=== PATIENT | male | born 1990 | race Caucasian/White ===

== ENCOUNTER 2020-04-04 10:41 | Outpatient (NON) | payer BC, SELFPAY ==
[2020-04-05 01:06] LABS: SARS-CoV-2 RNA PCR Negative
== END 2020-04-04 10:42 ==
LOC: ANHCOVIDDT 10:42
PROVIDERS: PCP Family Medicine; Visit Provider Family Medicine
DX: Z20.828 Contact with and (suspected) exposure to other viral communicable diseases (principal)
CPT/HCPCS: 87635; C9803; U0003

== ENCOUNTER 2020-11-11 11:25 | Emergency (ER) | payer BC, SELFPAY ==
[2020-11-11 11:55] VITALS: BP 127/75; PULSE 74; RESP 16; TEMP 36.5; O2SAT 94
[2020-11-11 12:19] LABS: Basophils Absolute Auto 0.1 K/mm3 (0.0-0.1); Basophils Percent Auto 0.6 % (0.2-1.2); Eosinophils Absolute Auto 0.1 K/mm3 (0-0.3); Eosinophils Percent Auto 1.4 % (0-4.4); Hematocrit 49.1 % (42.0-52.0); Hemoglobin 16.6 g/dL (14.0-18.0); Immature Granulocyte Absolute 0.04 K/mm3 (0.00-0.031); Immature Granulocyte Percent A 0.5 % (0-0.5); Lymphocytes Absolute Auto 2.56 K/mm3 (0.9-3.2); Lymphocytes Percent Auto 29.6 % (18.3-44.2); Mean Corpuscular HGB Conc 33.8 g/dl (32-36); Mean Corpuscular Hemoglobin 30.2 pg (26-34); Mean Corpuscular Volume 89.4 fl (80-100); Mean Platelet Volume 9.8 fl (7.4-10.4); Monocytes Absolute Auto 0.7 K/mm3 (0.1-0.6); Monocytes Percent Auto 7.5 % (2.6-8.5); Neutrophils Absolute Auto 5.2 K/mm3 (1.3-6.7); Neutrophils Percent Auto 60.4 % (45.5-73.1); Platelet Count Result 228 k/mm3 (150-375); Red Blood Count 5.49 M/mm3 (4.6-6.20); Red Cell Distribution Width 11.7 % (11.5-14.5); White Blood Count 8.7 K/mm3 (4.5-10.0)
[2020-11-11 12:30] LABS: Alanine Aminotransferase 65 U/L (4-50); Albumin Level 4.8 g/dL (3.5-5.1); Alkaline Phosphatase 69 U/L (38-126); Anion Gap 11 mmol/L (8-16); Aspartate Amino Transferase 43 U/L (17-59); Bilirubin,Total 0.6 mg/dL (0.2-1.3); Blood Urea Nitrogen 13 mg/dL (9-20); Calcium 9.7 mg/dL (8.4-10.2); Carbon Dioxide 25 mmol/L (22-30); Chloride 104 mmol/L (98-107); Estimated CRCL calculation 131 ml/min; Estimated Glomerular Filt Rate > 60; Glucose 88 mg/dL (75-110); Lipase 279 U/L (23-300); Potassium 4.1 mmol/L (3.4-5.0); Sodium 140 mmol/L (137-145)
[2020-11-11 15:46] VITALS: BP 129/85; PULSE 79; RESP 16; O2SAT 97
--- NOTE | 2020-11-11 15:54 | ED.ABDPAIN ---
HPI - Abdominal Pain General Chief Complaint: Abdominal Pain Stated Complaint: abd pain, nausea Time Seen by Provider: 11/11/20 15:47 History of Present Illness HPI narrative: LUQ pain started suddenly while at work earlier. Sharp in quality. No radiation. Worse with walking. Associated with nausea. No vomiting, fever, diarrhea, hematuria, dysuria. Related Data Home Medications Medication Instructions Recorded Confirmed omeprazole 20 mg tablet,delayed 20 mg PO DAILY 01/18/20 04/26/20 release amitriptyline 10 mg tablet 10 mg PO . q.h.s. tablet 04/04/20 04/26/20 meloxicam 15 mg tablet 15 mg PO DAILY PRN 04/04/20 04/26/20 Allergies Allergy/AdvReac Type Severity Reaction Status Date / Time No Known Allergies Allergy Verified 08/13/19 15:00 Review of Systems Review of Systems: All systems reviewed & are unremarkable except as noted in HPI and below Constitutional: Constitutional: Denies chills and Denies fever(s) Cardiovascular: Cardiovascular: Denies chest pain Respiratory: Respiratory: Denies dyspnea Gastrointestinal: Gastrointestinal: Reports abdominal pain, Denies constipation, Denies diarrhea, Reports nausea and Denies vomiting Genitourinary: Genitourinary: Denies hematuria and Denies dysuria Musculoskeletal: Musculoskeletal: Denies back pain Neurologic: Reports system reviewed and no additional complaints, except as documented PMF Past Medical History Medical History Ankylosing spondylitis Bipolar mood disorder BMI 32.0-32.9,adult Chronic anxiety Chronic depression COVID-19 (06/27/20) Diarrhea Elevated liver enzymes Exposure to COVID-19 virus GERD (gastroesophageal reflux disease) Pharyngitis Family History Family History Grandparent Cerebrovascular accident Social History Social History Smoking status: Never smoker Alcohol intake: never Substance use: current Substance use type: marijuana Other substance usage details: uses CBD oil in a pen form and uses for hip pain. Also uses in edible form. Last use: 4 weeks ago Gender identity (if verbalized by the patient): Male Exam Const: General: no acute distress and alert Orientation/consciousness: patient oriented x3 HENMT: Head: normal to inspection Neck: Neck: normal visual inspection and no lymphadenopathy Chest: Chest palpation & inspection: no tenderness Resp: Effort & Inspection: normal respiratory effort Auscultation: clear to auscultation bilaterally, no rales, no rhonchi and no wheezes Cardio: Jugular venous distension: no JVD Rate: regular rate Rhythm: regular rhythm Heart sounds: no murmurs GI: Inspection: non-distended GI Palp: Yes Soft to palpation and No Tenderness to palpation present (GI) Skin: General skin exam: normal color Neuro: General: patient oriented x3 and moves all extremities Speech: normal speech Extrem: General: no edema Psych: Appearance: well kempt Affect: normal affect Course Vital Signs Vital signs: Vital Signs Temperature 36.5 C 11/11/20 11:55 Pulse Rate 74 11/11/20 11:55 Respiratory Rate 16 11/11/20 11:55 Blood Pressure 127/75 11/11/20 11:55 Pulse Oximetry 94 11/11/20 11:55 Temperature 36.5 C 11/11/20 11:55 Pulse Rate 74 11/11/20 16:40 Respiratory Rate 16 11/11/20 16:40 Blood Pressure 113/65 11/11/20 16:40 Pulse Oximetry 96 11/11/20 16:40 MDM - Abdominal Pain MDM Narrative Medical decision making narrative: Benign exam. Story is nonspecific. Differential Diagnosis Differential diagnosis: Likely abdominal pain and calculus of kidney Medical Records Attestation: I reviewed the patient's medical records. Lab Data Attestation: I reviewed the patient's lab results. Result diagrams: 11/11/20 12:03 11/11/20 12:03 Lab
[2020-11-11 16:15] LABS: Add Urine Microscopic? NO; Appearance Urine Clear (Clear); Bilirubin Urine Negative (Negative); Blood Urine Negative (Negative); Color Urine Yellow (Yellow); Glucose Urine UA Negative (Negative); Ketones Urine Negative (Negative); Leukocyte Esterase Ur Negative LEU/UL (Negative); Nitrate Urine Negative (Negative); Protein Urine Negative (Negative); Specific Grav Ur 1.024 (1.001-1.035); Urobilinogen Urine Negative mg/dL (<2.0)
[2020-11-11 16:40] VITALS: BP 113/65; PULSE 74; RESP 16; O2SAT 96
== END 2020-11-11 16:41 | disposition home or self-care (01) ==
PROVIDERS: Family Medicine; Emergency Provider Emergency Medicine; PCP Family Medicine
DX: R10.12 Left upper quadrant pain (principal); F31.9 Bipolar disorder, unspecified; F41.9 Anxiety disorder, unspecified; Z86.16 Personal history of COVID-19; K21.9 Gastro-esophageal reflux disease without esophagitis
CPT/HCPCS: 36415; 80053; 81003; 83690; 85025; 99283

== ENCOUNTER 2020-11-18 13:12 | Outpatient (CLI) | payer BC, SELFPAY ==
--- NOTE | ~2020-11-18 | CT_ITS ---
EXAMINATION: CT abdomen pelvis wo con DATE: 11/18/2020 13:58 INDICATION: Left upper quadrant pain TECHNIQUE: Computed tomography (CT) of the abdomen and pelvis was performed without intravenous contr ast. The dose-length product (DLP) was 989.14 mGy-cm. Automated exposure control and iterative recons truction technique were employed. COMPARISON: None FINDINGS: The lung bases are clear. The heart size is normal. Mild bilateral gynecomastia is noted. T he liver, spleen, pancreas, gallbladder, and adrenal glands are normal. The kidneys are unremarkable. No pathologically enlarged abdominal or pelvic lymph nodes are identified. The appendix is normal. T here is no free intraperitoneal gas or evidence of bowel obstruction. There is a tiny fat-containing umbilical hernia. IMPRESSION: 1. No CT correlate for the patient's symptoms. Reviewed, dictated and finalized at location A.
== END 2020-11-18 13:13 | disposition home or self-care (01) ==
LOC: ANHIMG 13:12
PROVIDERS: PCP Family Medicine; Visit Provider Family Medicine
DX: R10.32 Left lower quadrant pain (principal)
CPT/HCPCS: 74176

== ENCOUNTER → 2020-12-30 01:36 | Outpatient (CLI) | payer BC, SELFPAY ==
[2020-12-31 21:35] LABS: SARS-CoV-2 RNA PCR Negative
== END ==
PROVIDERS: PCP Family Medicine; Visit Provider Family Medicine
DX: Z20.822 Contact with and (suspected) exposure to COVID-19 (principal)
CPT/HCPCS: C9803; U0003; U0005

== ENCOUNTER → 2021-12-19 10:06 | Outpatient (CLI) | payer BC, SELFPAY ==
--- NOTE | ~2021-12-19 | XR_ITS ---
EXAMINATION: XR hand LT min 3V INDICATION: Left hand pain TECHNIQUE: Three views of the left hand are obtained. COMPARISON: None available FINDINGS: Bone alignment is normal. There is no fracture. No erosions are identified. The joint space s are unremarkable. The soft tissues are normal. IMPRESSION: 1. Unremarkable and radiographs. Reviewed, dictated and finalized at location B.
--- NOTE | ~2021-12-19 | XR_ITS ---
XR hip LT 2V w AP pelvis 12/19/2021 10:32 Indication: Pelvic pain. Left hip pain. Procedure: AP pelvis and 3 views left hip Comparison: No prior studies for comparison. Findings: Pelvic rings are intact. Sacral foramen are symmetric. Mild osteoarthritis of the hips. Sac ral foramen are symmetric. No significant soft tissue abnormality is identified. Impression: 1: Mild osteoarthritis of the hips. Reviewed, dictated and finalized at location A. Impression: 1: Mild osteoarthritis of the hips.
--- NOTE | ~2021-12-19 | XR_ITS ---
EXAMINATION: XR hand RT min 3V INDICATION: Right hand pain TECHNIQUE: Three views of the right hand are obtained. COMPARISON: 01/27/2007 FINDINGS: Bone alignment is normal. There is no fracture. No erosions are identified. The joint space s are normal. The soft tissues are unremarkable. IMPRESSION: 1. Unremarkable hand radiographs. Reviewed, dictated and finalized at location B.
== END ==
PROVIDERS: PCP Family Medicine; Visit Provider Family Medicine
DX: M25.552 Pain in left hip (principal); M79.641 Pain in right hand; G89.29 Other chronic pain; M79.642 Pain in left hand; M16.0 Bilateral primary osteoarthritis of hip
CPT/HCPCS: 73130; 73502

== ENCOUNTER 2023-06-24 08:05 | Emergency (ER) | payer BC, SELFPAY ==
[2023-06-24 08:09] VITALS: BP 124/88; PULSE 72; RESP 16; TEMP 36.6; O2SAT 100
--- NOTE | 2023-06-24 08:13 | ED.GENADULT ---
HPI - General Adult General Chief complaint: Extremity Injury, Lower Stated complaint: Swollen knee Source: patient, RN notes reviewed and old records reviewed Mode of arrival: ambulatory Limitations: no limitations History of Present Illness HPI narrative: 33-year-old male patient presents to [facility] with complaint of red, warm bump on her right knee the patient noted Saturday. Patient states that was ingrown hair pulled the hair out the redness is getting worse. Patient has tried warm compresses with no relief. Related Data Home Medications Medication Instructions Recorded Confirmed cannabis 1 puff BYMOUTH DAILY 12/19/21 06/24/23 Allergies Allergy/AdvReac Type Severity Reaction Status Date / Time No Known Allergies Allergy Verified 06/24/23 08:14 Review of Systems Constitutional: Constitutional: Reports no additional constitutional complaints, Denies body ache(s), Denies chills, Denies fatigue, Denies fever(s) and Denies headache(s) Eyes: Eyes: Reports no additional eye complaints and Denies blurry vision ENT: Reports system reviewed and no additional complaints, except as documented, Denies vertigo, Denies dizziness, Denies ear discharge, Denies otalgia, Denies facial pain, Denies headache(s), Denies nasal congestion, Denies nasal discharge, Denies sinus pain, Denies sinus pressure and Denies sore throat Cardiovascular: Cardiovascular: Reports no additional cardiovascular complaints, Denies chest pain, Denies chest pain at rest, Denies rapid heart rate and Denies dyspnea Respiratory: Respiratory: Reports no additional respiratory complaints, Denies chest congestion, Denies cough, Denies pain on inspiration, Denies pain with cough and Denies dyspnea Gastrointestinal: Gastrointestinal: Denies abdominal pain, Denies diarrhea, Denies nausea and Denies vomiting Integumentary/Breasts: Skin/Breast: Reports furuncle and Denies rash Neurologic: Reports system reviewed and no additional complaints, except as documented, Denies vertigo, Denies dizziness and Denies headache(s) Endocrine: Endocrine: Denies fatigue PMFSH Past Medical History Medical History ADHD (attention deficit hyperactivity disorder), inattentive type Ankylosing spondylitis Bipolar mood disorder BMI 26.0-26.9,adult BMI 27.0-27.9,adult BMI 28.0-28.9,adult BMI 31.0-31.9,adult BMI 32.0-32.9,adult Cellulitis and abscess of buttock Chronic anxiety Chronic depression Chronic left hip pain Chronic pain thoracic pain, hand pain, hip pain Chronic pain of left hand Chronic pain of right hand Chronic thoracic back pain COVID-19 (06/27/20) 07/23/22 Diarrhea Elevated high sensitivity C-reactive protein (12/19/21) CRP elevated at greater than 10 on 12/19/2021 with sed rate 9, rheumatoid factor less than 14, CCP less than 16, MEHDI negative, uric acid 5.4. WBC 10.0. HS CRP 0.7 on 03/12/2022. Elevated liver enzymes (01/13/21) AST 33 with ALT elevated at 65 on 01/13/2021. AST 20, ALT 22, GGT 18 on 12/19/2021. Erectile dysfunction Exposure to COVID-19 virus GERD (gastroesophageal reflux disease) Left lower quadrant abdominal pain Mixed hyperlipidemia (01/13/21) total cholesterol 241, triglycerides 97, HDL 51 and LDL 168 on 01/13/2021. Total cholesterol 161, triglycerides 103, HDL 44 and LDL 97 on 12/19/2021. Nail fungal infection (~2021) right foot 3rd and 4th digit, left 5th digit on the feet Nausea and vomiting Overweight (BMI 25.0-29.9) Pharyngitis Sebaceous cyst chronic Sebaceous cyst left occipital scalp 1 cm in diameter asymptomatic. Family History Family History Grandparent Cerebrovascular accident Social History Social History Smoking status: Never smoker Alcohol intake: current Alcohol use details: Socially Substance use: current Substance use type:
== END 2023-06-24 08:35 | disposition home or self-care (01) ==
PROVIDERS: Emergency Provider Registered Nurse; PCP Family Medicine
DX: L02.415 Cutaneous abscess of right lower limb (principal); F12.90 Cannabis use, unspecified, uncomplicated; F90.9 Attention-deficit hyperactivity disorder, unspecified type; K21.9 Gastro-esophageal reflux disease without esophagitis; E78.2 Mixed hyperlipidemia; Z86.16 Personal history of COVID-19
CPT/HCPCS: 99213; G0463

== ENCOUNTER 2024-04-19 13:01 | Emergency (ER) | payer BC, SELFPAY ==
[2024-04-19 13:24] VITALS: BP 130/84; PULSE 98; RESP 16; TEMP 36.6; O2SAT 99
--- NOTE | 2024-04-19 13:58 | ED.BACK ---
HPI - Back Pain/Injury General Chief Complaint: Back Pain/Injury Stated Complaint: Back/Rib Pain Source: patient Mode of arrival: ambulatory Limitations: no limitations History of Present Illness HPI Narrative: 34-year-old male presented for complaint of right lower back pain and right lower rib pain, after injury last night. He states while walking up the stairs he fell and struck the left knee on the step but states he twisted his back. Took ibuprofen this morning. Denies pain radiating into the hips or legs, numbness, tingling, weakness of the lower extremities, or change in gait, saddle paresthesia or loss of bowel or bladder. Related Data Home Medications Medication Instructions Recorded Confirmed cannabis 1 puff BYMOUTH DAILY 12/19/21 04/19/24 Allergies Allergy/AdvReac Type Severity Reaction Status Date / Time No Known Allergies Allergy Verified 04/19/24 13:36 Review of Systems Review of Systems: CONSTITUTIONAL: Denies body aches, fever, chills EYES: Denies visual changes CARDIOVASCULAR: Denies chest pain, palpitations, or edema. RESPIRATORY: Denies cough or dyspnea. GASTROINTESTINAL: Denies abdominal pain, nausea, vomiting, or diarrhea. SKIN: Denies rash, itching, or wounds. MUSCULOSKELETAL: reports back pain NEUROLOGIC: Denies numbness, tingling, or weakness. All systems reviewed & are unremarkable except as noted in HPI and below PMFSH Past Medical History Medical History ADHD (attention deficit hyperactivity disorder), inattentive type Ankylosing spondylitis Bipolar mood disorder BMI 26.0-26.9,adult BMI 27.0-27.9,adult BMI 28.0-28.9,adult BMI 29.0-29.9,adult BMI 31.0-31.9,adult BMI 32.0-32.9,adult Cellulitis and abscess of buttock Chronic anxiety Chronic depression Chronic left hip pain Chronic pain thoracic pain, hand pain, hip pain Chronic pain of left hand Chronic pain of right hand Chronic thoracic back pain COVID-19 (06/27/20) 07/23/22 Diarrhea Elevated high sensitivity C-reactive protein (12/19/21) CRP elevated at greater than 10 on 12/19/2021 with sed rate 9, rheumatoid factor less than 14, CCP less than 16, MEHDI negative, uric acid 5.4. WBC 10.0. HS CRP 0.7 on 03/12/2022. Elevated liver enzymes (01/13/21) AST 33 with ALT elevated at 65 on 01/13/2021. AST 20, ALT 22, GGT 18 on 12/19/2021. Encounter for wellness examination in adult Erectile dysfunction Exposure to COVID-19 virus GERD (gastroesophageal reflux disease) Left lower quadrant abdominal pain Mixed hyperlipidemia (01/13/21) total cholesterol 241, triglycerides 97, HDL 51 and LDL 168 on 01/13/2021. Total cholesterol 161, triglycerides 103, HDL 44 and LDL 97 on 12/19/2021. Nail fungal infection (~2021) right foot 3rd and 4th digit, left 5th digit on the feet Nausea and vomiting Overweight (BMI 25.0-29.9) Pharyngitis Sebaceous cyst chronic Sebaceous cyst left occipital scalp 1 cm in diameter asymptomatic. Family History Family History Grandparent Cerebrovascular accident Social History Social History Smoking status: Never smoker Alcohol intake: current Alcohol use details: Socially Substance use: current Substance use type: marijuana Other substance usage details: Uses marijuana for chronic pain Lack of Transportation: No Lack of Food: Sometimes True Current Housing: I Have Housing Concerned About Future Housing: No Difficulty Paying Gas/Electric Bills: No Difficulty Paying for Meds: No Currently Unemployed: No Education: High School Diploma/GED Difficulty w/ Childcare or Family Care: No Living arrangements: with family Occupation/Education: occupation Gender identity (if verbalized by the patient): Male Comments At time of signature, I have reviewed and agree with nursing past medical, surgical, social and family history unless otherwise noted. Please see nursing chart for further information. There is no relevant family history pertinent to the presenting complaint Exam Narrative: GENERAL: Well-appearing CHEST: Speaks in full sentences. No respiratory distress. HEART: Regular rate and rhythm. Normal and equal peripheral pulses. MUSC: No Vertebral point tenderness. BLEs with normal strength and sensation, normal range of motion; endorses right lower back pain with movement. No ecchymosis, No open wounds, alignment normal, pulse palpable and equal bilaterally, skin warm, dry, pink. Capillary refill less than 3 seconds. Gait steady. SKIN: Warm, dry, no rash. NEURO: Alert and oriented x3. Back/Spine/Pelvis: Back/spine/pelvis image: 1. Location of back pain Course Course Emergency Course: Patient is aware of diagnosis, understands and agrees to treatment plan. Anticipatory guidance given. Patient agrees to follow-up as directed and is aware of reasons to seek care at the emergency department. Portions of this record may have been created with voice recognition software Level of Care: Express Care Visit Vital Signs Vital signs: Vital Signs Temperature 97.9 F 04/19/24 13:24 Pulse Rate 98 04/19/24 13:24 Respiratory Rate 16 04/19/24 13:24 Blood Pressure 130/84 04/19/24 13:24 Pulse Oximetry 99 04/19/24 13:24 Temperature 97.9 F 04/19/24 13:24 Pulse Rate 98 04/19/24 13:24 Respiratory Rate 16 04/19/24 13:24 Blood Pressure 130/84 04/19/24 13:24 Pulse Oximetry 99 04/19/24 13:24 Reviewed MDM - Back Pain/Injury MDM Narrative Medical decision making narrative: Discussed physical exam findings, patient states he does not like to take very many medications. Deferred muscle relaxer at this time. Advised supportive measures and s/s to go to the ER. Pt is stable and appropriate for outpt treatment and follow up with pcp. Differential Diagnosis Differential diagnosis: Likely lumbar radiculopathy, sciatica, strain of lumbar region, renal colic, pyelonephritis and discitis Discharge Plan Discharge Clinical Impression: Low back strain Patient Disposition: Home, Self-Care Condition: Stable Instructions: Antibiotic Form, Low Back Strain (ED) Additional Instructions: Avoid lifting. pushing. pulling, or anything that worsens the pain. Walking and other gentle exercising several times a week has been shown to improve back pain; bed rest is not recommended. Take Motrin 800mg every 6-8 hours with food for the next 2-3 days, along with Tylenol 1000mg every 8 hours Over the counter pain cream like icy/hot or biofreeze, or Salon pas/lidocaine 4% patch. You may apply heat or cold to the area as needed. If you experience any worsening pain, swelling, numbness, weakness, problems with bladder or bowel function, weakness or loss of feeling in one or both of your legs, or any other serious concerns. Please follow up with your Primary Care Doctor within 48-72 hours - call for an appointment. Prescriptions: New ibuprofen 800 mg tablet 800 mg PO TID PRN (Reason: pain) Qty: 15 0RF No Action cannabis 1 puff BYMOUTH DAILY dextroamphetamine-amphetamine [Adderall] 10 mg tablet 10 mg PO BID Qty: 60 0RF Rx Instructions: administer doses at least 4-6 hours apart Follow-up/Referrals: Ivan Yang MD [Primary Care Provider] - Stand Alone Forms: Work/School Release IP Time of Disposition: 14:07
== END 2024-04-19 14:08 | disposition home or self-care (01) ==
PROVIDERS: Emergency Provider Nurse Practitioner Family; PCP Family Medicine
DX: S39.012A Strain of muscle, fascia and tendon of lower back, initial encounter (principal); W10.9XXA Fall (on) (from) unspecified stairs and steps, initial encounter; K21.9 Gastro-esophageal reflux disease without esophagitis; E78.2 Mixed hyperlipidemia; F12.90 Cannabis use, unspecified, uncomplicated
CPT/HCPCS: 99213; G0463

== ENCOUNTER → 2024-04-27 09:18 | Outpatient (CLI) | payer BC, SELFPAY ==
--- NOTE | ~2024-04-27 | XR_ITS ---
EXAMINATION: XR lumbar spine min 4V DATE: 04/27/2024 09:40 INDICATION: Thoracic and lumbar spine pain with left-sided sciatica TECHNIQUE: 1. One AP and lateral views of the thoracic spine were obtained. 2. AP, lateral, left and right oblique and coned-down lateral lumbosacral views of the lumbar spine w ere obtained. COMPARISON: 02/17/2019 FINDINGS: Thoracic spine: Slight S-shaped curvature of the thoracic spine with 5 degree upper thoracic dextrocurvature and 5 de grees lower thoracic levocurvature. Unchanged minimal to mild anterior wedging at a few levels in the midthoracic spine, likely T5-T8. There is mild to moderate thoracic disc height loss most prominent in the midthoracic spine. Lumbar spine: Alignment is normal. Vertebral body and disc heights are normal. No pars intra-articular is defects. Multilevel bilateral mild facet osteoarthritis in the mid to lower lumbar spine. Sacral arches are in tact. Moderate joint space. The bilateral sacroiliac joints with indistinct cortical margins along po rtions of the bilateral sacroiliac joints with subarticular sclerosis and multiple small erosions but appreciated on prior CT consistent with symmetric sacroiliitis. IMPRESSION: 1. Mild to moderate thoracic and minimal lumbar spondylosis. 2. Relatively symmetric moderate bilateral sacroiliitis for which differential would include enteropa thic arthritis in setting of Crohn's disease or ulcerative colitis, enclosing spondylitis and rheumat oid arthritis. Reviewed, dictated and finalized at location A. ULTURIST IMPRESSION: 1. Mild to moderate thoracic and minimal lumbar spondylosis. 2. Relatively symmetric moderate bilateral sacroiliitis for which differential would include enteropathic arthritis in setting of Crohn's disease or ulcerativ e colitis, enclosing spondylitis and rheumatoid arthritis.
--- NOTE | ~2024-04-27 | XR_ITS ---
EXAMINATION: XR thoracic spine 3V DATE: 04/27/2024 09:40 INDICATION: Thoracic and lumbar spine pain with left-sided sciatica TECHNIQUE: 1. One AP and lateral views of the thoracic spine were obtained. 2. AP, lateral, left and right oblique and coned-down lateral lumbosacral views of the lumbar spine w ere obtained. COMPARISON: 02/17/2019 FINDINGS: Thoracic spine: Slight S-shaped curvature of the thoracic spine with 5 degree upper thoracic dextrocurvature and 5 de grees lower thoracic levocurvature. Unchanged minimal to mild anterior wedging at a few levels in the midthoracic spine, likely T5-T8. There is mild to moderate thoracic disc height loss most prominent in the midthoracic spine. Lumbar spine: Alignment is normal. Vertebral body and disc heights are normal. No pars intra-articular is defects. Multilevel bilateral mild facet osteoarthritis in the mid to lower lumbar spine. Sacral arches are in tact. Moderate joint space. The bilateral sacroiliac joints with indistinct cortical margins along po rtions of the bilateral sacroiliac joints with subarticular sclerosis and multiple small erosions but appreciated on prior CT consistent with symmetric sacroiliitis. IMPRESSION: 1. Mild to moderate thoracic and minimal lumbar spondylosis. 2. Relatively symmetric moderate bilateral sacroiliitis for which differential would include enteropa thic arthritis in setting of Crohn's disease or ulcerative colitis, enclosing spondylitis and rheumat oid arthritis. Reviewed, dictated and finalized at location A. 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 Mild to moderate thoracic and minimal lumbar spondylosis. 2. Relatively symmetric moderate bilateral sacroiliitis for which differential would include enteropathic arthritis in setting of Crohn's disease or ulcerativ e colitis, enclosing spondylitis and rheumatoid arthritis.
== END ==
LOC: EXPTROY 09:21
PROVIDERS: PCP Family Medicine; Visit Provider Family Medicine
DX: M47.814 Spondylosis without myelopathy or radiculopathy, thoracic region (principal); M46.1 Sacroiliitis, not elsewhere classified; M54.42 Lumbago with sciatica, left side
CPT/HCPCS: 72072; 72110

== ENCOUNTER 2024-07-14 08:00 | Outpatient (RCR) | payer BC, SELFPAY ==
--- NOTE | 2024-05-13 15:40 | OPREHPOC ---
Outpatient Therapy Plan of Care This is a Multidisciplinary Plan of Care that may contain components documented by all disciplines (PT, OT, and ST.) PT Problem 1 PT Problem #1 Knowledge Deficit PT Goal 1 Goal / Goal Update 1. Pt to be IND with issued HEP. PT Problem 2 PT Problem #2 Pain PT Goal 1 Goal / Goal Update 1. Pt to report back pain no greater than 3/10 in the last week 2. Pt to report 75% return to prior level of function 3. Pt to decline radicular symptoms in the last week 4. Pt to report no increase in pain with passive hip pain PT Problem 3 PT Problem #3 Impaired Strength PT Goal 1 Goal / Goal Update 1. Pt to demonstrate a 50lb lift and carry without an increase in symptoms.
--- NOTE | 2024-05-13 15:41 | PTOPEVAL1 ---
Assessment and note entered by Vel Chahal, PT, DPT Evaluation Information Assessment Status Evaluation Subjective Information Pt states he tripped and fell while running up the stairs about a month ago, he states he did not land on anything but feels like he jolted himself and has not been the same since. Pt was given prednisone and did not notice much of a change. He states it feels like his hips/pelvis is unstable, states when he walks, sits, stands, or squats moving will cause a sharp burning pain down his leg. States at times the pain will go down either leg. He states his back feels unstable and like it pops way more than usual. 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 He is currently off work at this time. Reported Pain Level Pain Score 5: Self Report Assessment PT Clinical Summary Pt presents to therapy today for his initial evaluation with a diagnosis of low back pain. Today he demonstrates pain with passive hip ROM, limited strength d/t pain, and decreased functional mobility. He reports radicular pain gianna . He demonstrates asymmetric pelvic posture in supine. He has decreased ability to lift and carry and perform his job requirements d/t pain. Skilled therapy services are indicated to address the deficits noted above, to manage pain, and to return to prior level of function. Plan of Care Interventions Electrical Stimulation,Gait Training,Hot Pack/Cold Pack,Manual Therapy,Neuro Re-education,Patient/ Caregiver Education,Therapeutic Activities, Therapeutic Exercise PT Services Indicated Yes Treatment Frequency and 2x/wk for 8 visits Duration These treatments will address the objective and functional deficits as defined above. The patient will be advanced safely and appropriately in order for the patient to progress towards his/her prior level of function. Additional exercises will be introduced and as well as a comprehensive home exercise program upon discharge, if needed, ?to ensure carryover of functional gains achieved in the clinic. This treatment plan has been reviewed and agreement upon by the patient.
--- NOTE | 2024-06-05 08:01 | PCPTNOTE ---
Patient canceled therapy this date due to weather.
--- NOTE | 2024-06-16 16:30 | OPREHPOC ---
Outpatient Therapy Plan of Care This is a Multidisciplinary Plan of Care that may contain components documented by all disciplines (PT, OT, and ST.) PT Problem 1 PT Problem #1 Knowledge Deficit PT Goal 1 Goal / Goal Update 1. Pt to be IND with issued HEP. Progress Met PT Problem 2 PT Problem #2 Pain PT Goal 1 Goal / Goal Update 1. Pt to report back pain no greater than 3/10 in the last week 2. Pt to report 75% return to prior level of function 3. Pt to decline radicular symptoms in the last week 4. Pt to report no increase in pain with passive hip pain 06/16/24: 1. progressing 2. progressing 3. progressing 4. progressing PT Problem 3 PT Problem #3 Impaired Strength PT Goal 1 Goal / Goal Update 1. Pt to demonstrate a 50lb lift and carry without an increase in symptoms. 06/16/24: 1. not met
--- NOTE | 2024-06-16 16:30 | PTOPPROG ---
Assessment and note entered by Vel Chahal, PT, DPT Evaluation Information Assessment Status Progress Diagnosis L sided sciatic pain ICD-10 Condition Codes (PT) Pain in low back M54.50,Radiculopathy, lumbar region M54.16,Pain in right hip M25.551,Pain in left hip M25.552 Subjective Information Pt states he is having some R hip and lower back pain today. He states he has had a couple of days with no pain. He states he still feels unstable in his midback. He is worried about going back to work d/t this. He follows up with her PCP on . Assessment PT Clinical Summary Pt presents to therapy today for his progress report following 5 visits of skilled therapy to treat his low back pain with radiculopathy. Today he demonstrates improve lumbar ROM and improve pain reports from his initial visit but still increased from his baseline. He demonstrates asymmetric pelvic posture in supine. He has decreased ability to lift and carry and perform his job requirements d/t pain. Continuation of skilled therapy services are indicated to address the deficits noted above, to continue progressing towards therapy goals, to manage pain, and to return to prior level of function. Plan of Care Interventions Electrical Stimulation,Gait Training,Hot Pack/Cold Pack,Manual Therapy,Neuro Re-education,Patient/ Caregiver Education,Therapeutic Activities, Therapeutic Exercise PT Services Indicated Yes Treatment Frequency and 2x/wk for 8 visits Duration These treatments will address the objective and functional deficits as defined above. The patient will be advanced safely and appropriately in order for the patient to progress towards his/her prior level of function. Additional exercises will be introduced and as well as a comprehensive home exercise program upon discharge, if needed, ?to ensure carryover of functional gains achieved in the clinic. This treatment plan has been reviewed and agreement upon by the patient.
--- NOTE | 2024-07-02 14:30 | PCPTNOTE ---
Pt. was unable to attend today's PT appointment due to being ill.
--- NOTE | 2024-07-14 08:45 | OPREHPOC ---
Outpatient Therapy Plan of Care This is a Multidisciplinary Plan of Care that may contain components documented by all disciplines (PT, OT, and ST.) PT Problem 1 PT Problem #1 Knowledge Deficit PT Goal 1 Goal / Goal Update 1. Pt to be IND with issued HEP. Progress Met PT Problem 2 PT Problem #2 Pain PT Goal 1 Goal / Goal Update 1. Pt to report back pain no greater than 3/10 in the last week 2. Pt to report 75% return to prior level of function 3. Pt to decline radicular symptoms in the last week 4. Pt to report no increase in pain with passive hip pain 06/16/24: 1. progressing 2. progressing 3. progressing 4. progressing 07/14/24: 1-3. progressing 4. met PT Problem 3 PT Problem #3 Impaired Strength PT Goal 1 Goal / Goal Update 1. Pt to demonstrate a 50lb lift and carry without an increase in symptoms. 06/16/24: 1. not met 07/14/24: 1. progressing
--- NOTE | 2024-07-14 08:45 | PTOPPROG ---
Assessment and note entered by Vel Chahal, PT, DPT Evaluation Information Assessment Status Progress Diagnosis L sided sciatic pain ICD-10 Condition Codes (PT) Pain in low back M54.50,Radiculopathy, lumbar region M54.16,Pain in right hip M25.551,Pain in left hip M25.552 Subjective Information Pt states he continues to have unpredictable patterns of pains. He reports not doing anything differently at home but continues to have large fluctuations of pain levels. Pt states he follows up with his doctor next week to discuss a return to work date. He states he will go up to 3 days at a time with completely no pain, other days he wakes up with pain in the back and down the leg. He states most of the time just walking will be enough to trigger his symptoms. He states his upper back and mid back do not cause him any pain, it is just his low back and hips that has been hard to avoid pain. Assessment PT Clinical Summary Pt presents to therapy today for his progress report following 11 visits of skilled therapy to treat his low back pain with radiculopathy. Today he demonstrates improved lumbar ROM and passive LE ROM and improve pain reports from his initial visit but still increased from his baseline. He continues to have has decreased ability to lift and carry and perform his job requirements d/t pain. Pt plans to follow up with his PCP in regards to next steps with his POC. Continuation of skilled therapy services are indicated to address the deficits noted above, to continue progressing towards therapy goals, to manage pain, and to return to prior level of function. Plan of Care Interventions Electrical Stimulation,Gait Training,Hot Pack/Cold Pack,Manual Therapy,Neuro Re-education,Patient/ Caregiver Education,Therapeutic Activities, Therapeutic Exercise PT Services Indicated Yes Treatment Frequency and 2x/wk for 8 visits Duration These treatments will address the objective and functional deficits as defined above. The patient will be advanced safely and appropriately in order for the patient to progress towards his/her prior level of function. Additional exercises will be introduced and as well as a comprehensive home exercise program upon discharge, if needed, ?to ensure carryover of functional gains achieved in the clinic. This treatment plan has been reviewed and agreement upon by the patient.
== END 2024-08-11 23:59 | disposition home or self-care (01) ==
LOC: ANHGOSHPT 08:00
PROVIDERS: PCP Family Medicine; Visit Provider Family Medicine
DX: M54.42 Lumbago with sciatica, left side (principal)
CPT/HCPCS: 97014; 97110; 97140; 97161; 97530; G0283

== ENCOUNTER 2024-09-04 08:30 | Outpatient (RCR) | payer BC, SELFPAY ==
--- NOTE | 2024-08-13 12:49 | PCPTNOTE ---
The treatment documented on this account is a continuation of the treatment documented on visit number [id number]. Please see documentation on both accounts to view progress. The Plan of Care has been transitioned and updated within the new V#. I have addressed and agree with the discipline specific Problems, Interventions, and Goals for the current certification period. Completed interventions, outcomes, and problems have been marked as Inactive to facilitate the copying of the Care plan routine for recurring accounts.
--- NOTE | 2024-08-14 09:02 | PCPTNOTE ---
Patient had a schedule conflict with had to cancel appointment this date.
--- NOTE | 2024-08-25 09:16 | PCPTNOTE ---
Patient called in to cancel appointment due to illness.
--- NOTE | 2024-09-04 10:48 | OPREHPOC ---
Outpatient Therapy Plan of Care This is a Multidisciplinary Plan of Care that may contain components documented by all disciplines (PT, OT, and ST.) PT Problem 1 PT Problem #1 Knowledge Deficit PT Goal 1 Goal / Goal Update 1. Pt to be IND with issued HEP. Progress Met PT Problem 2 PT Problem #2 Pain PT Goal 1 Goal / Goal Update 1. Pt to report back pain no greater than 3/10 in the last week 2. Pt to report 75% return to prior level of function 3. Pt to decline radicular symptoms in the last week 4. Pt to report no increase in pain with passive hip pain 06/16/24: 1. progressing 2. progressing 3. progressing 4. progressing 07/14/24: 1-3. progressing 4. met Progress Met PT Problem 3 PT Problem #3 Impaired Strength PT Goal 1 Goal / Goal Update 1. Pt to demonstrate a 50lb lift and carry without an increase in symptoms. 06/16/24: 1. not met 07/14/24: 1. progressing Progress Met
--- NOTE | 2024-09-04 10:48 | PTOPDC ---
Assessment and note entered by Dudley Mclain, PT Evaluation Information Assessment Status Discharge Diagnosis L sided sciatic pain ICD-10 Condition Codes (PT) Pain in low back M54.50,Radiculopathy, lumbar region M54.16,Pain in right hip M25.551,Pain in left hip M25.552 Subjective Information Pt states he continues to have unpredictable patterns of pains. He reports not doing anything differently at home but continues to have large fluctuations of pain levels. Pt states he follows up with his doctor next week to discuss a return to work date. He states he will go up to 3 days at a time with completely no pain, other days he wakes up with pain in the back and down the leg. He states most of the time just walking will be enough to trigger his symptoms. He states his upper back and mid back do not cause him any pain, it is just his low back and hips that has been hard to avoid pain. Reported Pain Level Pain Score 0: Self Report Assessment PT Clinical Summary Patient met all goals for therapy and is suitable for discharge to [facility] at this time. 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 Patient is compliant and independent with [facility]. Plan of Care PT Services Indicated Yes
--- NOTE | 2024-09-04 10:53 | PTOPDC ---
Assessment and note entered by Dudley Mclain, PT Evaluation Information Assessment Status Discharge Diagnosis L sided sciatic pain ICD-10 Condition Codes (PT) Pain in low back M54.50,Radiculopathy, lumbar region M54.16,Pain in right hip M25.551,Pain in left hip M25.552 Subjective Information Patient reports that overall he is doing much better with pain and core activation. Feels hip mobility is greatly improved and has helped with his functional return. Plans to buy a [employer]OS[employer] ball to work on core and leg stability. Feels comfortable with HEP and reports compliance. Requests discharge at this time. Reported Pain Level Pain Score 0: Self Report Assessment PT Clinical Summary Patient met all goals for therapy and is suitable for discharge to [facility] at this time. 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 Patient is compliant and independent with HEP. Plan of Care PT Services Indicated Yes
== END 2024-09-04 11:15 | disposition home or self-care (01) ==
LOC: ANHGOSHPT 08:30
PROVIDERS: PCP Family Medicine; Visit Provider Family Medicine
DX: M54.42 Lumbago with sciatica, left side (principal)
CPT/HCPCS: 97110; 97140; 97530